=== PATIENT | female | born 1940 | race Caucasian/White ===

== ENCOUNTER → 2021-10-06 14:32 | Outpatient (CLI) | payer MEDICARE, OTHER, SELFPAY ==
--- NOTE | 2021-10-06 | DI.RAD.S_ITS ---
PROCEDURE: XR CHEST 2V INDICATIONS: DYSPNEA TECHNIQUE: 2 views of the chest were acquired. COMPARISON: None. FINDINGS: Surgical changes and devices: None. Lungs and pleura: Lungs are clear. No pleural effusions or pneumothorax. Mediastinum: Mediastinal contours are normal. Heart size is normal. Bones and chest wall: No suspicious bony abnormalities. Soft tissues appear unremarkable. IMPRESSION: No acute cardiopulmonary findings. Dictated by: Mercedes Paiz M.D. on 10/06/2021 at 15:52 Approved by: Mercedes Paiz M.D. on 10/06/2021 at 15:52
[2021-10-06 15:28] LABS: COVID19 -Nasal RAPID Negative (Negative)
== END ==
PROVIDERS: PCP Internal Medicine; Referring Provider Internal Medicine; Visit Provider Internal Medicine
DX: Z20.822 Contact with and (suspected) exposure to COVID-19 (principal); R06.09 Other forms of dyspnea
CPT/HCPCS: 71046; 87635; C9803

== ENCOUNTER → 2021-10-07 08:52 | Outpatient (CLI) | payer MEDICARE, OTHER, SELFPAY ==
--- NOTE | 2021-10-13 10:14 | PM.PFT.1 ---
Pulmonary Function Test Referral & Results Date Patient Seen: 10/07/21 Requesting provider: Simon Crain Results: The spirometry demonstrates an FVC of 2.26 L which is 70% of predicted. The FEV1 was measured at 1.69 L which is 70% of predicted. The FEV1/FVC ratio was 75 which is 101% of predicted. Lung volumes show an SVC of 2.39 L which is 75% of predicted. The diffusing capacity was measured at 25.92 which is 83% of predicted. No hemoglobin value was provided, so no correction for potential anemia could be made, if appropriate. The maximum voluntary ventilation was reduced Interpretation: This study demonstrates perhaps mild obstructive lung disease based on reduction FEV1 although FEV1/FVC ratio is preserved the shape a flow volume loop does support the presence of some degree of obstructive lung disease There is also mild reduction in lung volumes suggesting the presence of mild restrictive lung disease There may be a very minimal reduction in diffusing capacity suggesting the presence of disease at the capillary alveolar level
== END ==
PROVIDERS: PCP Internal Medicine; Referring Provider Internal Medicine; Visit Provider Internal Medicine
DX: J44.9 Chronic obstructive pulmonary disease, unspecified (principal); R06.09 Other forms of dyspnea
CPT/HCPCS: 94010; 94726; 94729